=== PATIENT | male | born 1995 | race African-American/Black ===

== ENCOUNTER 2017-12-24 20:56 | Emergency (ER) | payer SELFPAY ==
[~2017-12-24 20:56] MED LIST: Z.0.NO CURRENT MEDS
[2017-12-24 20:58] VITALS: BP 127/76; PULSE 76; RESP 16; TEMP 99; O2SAT 100
[2017-12-24] MEDS ORDERED: POLY10O EACH EYE (21:07)
--- NOTE | 2017-12-24 21:07 | PD ---
HPI Chief Complaint: Eye Problems/Injury Time Seen by Provider: 21:02 Travel History International Travel<30 days: No Contact w/Intl Traveler<30days: No Traveled to known affect area: No History of Present Illness HPI 22-year-old male with no significant medical history presents emergency department for evaluation of bilateral eye your dictation. Patient states 4 days ago the left I became reddened and irritated. It developed drainage. It then spread to his right eye. Now both eyes are red irritated and mildly swollen. They both have a drainage. His eyes are crusted shut in the morning. Denies any trauma. Denies any foreign body sensation. Denies any visual disturbances. No significant photophobia. No headache. No other symptoms to report. PFSH Past Medical History Medical History: Denies Significant Hx Autoimmune Disease: No Blood Disorders: No Anxiety: No Depression: No Cardiovascular Problems: No Diminished Hearing: No Gastrointestinal Disorders: No Genitourinary: No Musculoskeletal: No Neurologic: No Psychiatric: No Respiratory: No Immunizations Current: Yes Sickle Cell Disease: No Past Surgical History Other Surgery: No Social History Alcohol Use: No Tobacco Use: No Substance Use: No Allergies-Medications (Allergen,Severity, Reaction): Coded Allergies: No Known Allergies (Verified , 09/01/11) Reported Meds & Prescriptions Reported Meds & Active Scripts Active Polytrim Opth Drops (Polymyxin/Trimethoprim Sulfate) 10,000-0.1 Unit/Ml-% Soln 1 Drop EACH EYE Q6HR 10 Days Reported No Current Meds (Miscellaneous Medication) Misc Review of Systems Except as stated in HPI: all other systems reviewed are Neg Physical Exam Narrative GENERAL: Well-nourished, well-developed male patient ambulatory and in no acute distress. SKIN: Focused skin assessment warm/dry. HEAD: Normocephalic. EYES: No scleral icterus. Bilateral scleral injection with purulent drainage. Patient is able to open eyes. EOMI. Per old. NECK: Supple, trachea midline. CARDIOVASCULAR: Regular rate RESPIRATORY: No accessory muscle use. GASTROINTESTINAL: Abdomen nondistended MUSCULOSKELETAL: No cyanosis, or edema. Data Data Last Documented VS Vital Signs Date Time Temp Pulse Resp B/P (MAP) Pulse Ox O2 Delivery O2 Flow Rate FiO2 12/24/17 21:16 12/24/17 20:58 99.0 76 16 100 Orders Orders Ed Discharge Order (12/24/17 21:12) [facility] Medical Decision Making Medical Screen Exam Complete: Yes Emergency Medical Condition: Yes Medical Record Reviewed: Yes Differential Diagnosis Conjunctivitis versus keratitis versus iritis versus foreign body Narrative Course 22-year-old male presents to emergency department for evaluation of bilateral eye irritation. Physical exam and history are consistent with conjunctivitis. Patient be started on Polytrim ophthalmic drops. He is counseled on care. He agrees to return immediately with any acute worsening symptoms. Diagnosis Primary Impression: Conjunctivitis Qualified Codes: H10.33 - Unspecified acute conjunctivitis, bilateral Referrals: Primary Care Physician Patient Instructions: Conjunctivitis (DC), General Instructions Additional Instructions: Do not rub your eyes Frequent hand washing to reduce risk of spreading it Cool compresses to reduce irritation Warm compresses to remove crusts Follow up with primary care provider Return to ED with acute worsening of symptoms Med/Other Pt SpecificInfo: Prescription(s) given Scripts Polymyxin B-Trimethoprim Opth Drops (Polytrim Opth Drops) 10,000-0.1 Unit/Ml-% Soln 1 DROP EACH EYE Q6HR for Mgmt Bacterial Infection for 10 Days, #1 BOTTLE 0 Refills Prov: Shruthi Lizarraga 12/24/17 Disposition: 01 DISCHARGE HOME Condition: Stable Shruthi Lizarraga Dec 24, 2017 21:07
== END 2017-12-24 21:17 | disposition home or self-care (01) ==
LOC: NED 20:56
DX: H10.33 Unspecified acute conjunctivitis, bilateral (principal)
CPT/HCPCS: 99283

== ENCOUNTER 2018-01-20 22:54 | Emergency (ER) | payer SELFPAY ==
[~2018-01-20] VITALS: Ht 170.2 cm; Wt 75.0 kg
[~2018-01-20 22:54] MED LIST changes: +POLY10O EACH EYE
[2018-01-20 23:08] VITALS: BP 105/58; PULSE 84; RESP 18; TEMP 98.4; O2SAT 98
[2018-01-20] MEDS ORDERED: TOBR.3%O EACH EYE (23:37)
--- NOTE | 2018-01-20 23:41 | PD ---
HPI Chief Complaint: Eye Problems/Injury Time Seen by Provider: 23:32 Travel History International Travel<30 days: No Contact w/Intl Traveler<30days: No Traveled to known affect area: No History of Present Illness HPI 23-year-old male presents for evaluation of bilateral eye matting, irritation, drainage. Initially symptoms started 1 month ago. he was prescribed Polytrim ophthalmic solution with some improvement of his symptoms but his symptoms never resolved and now worsened over the past few days and this is what prompted evaluation. He does not wear contacts or glasses. He denies any ocular pain or periorbital swelling. He reports that the drainage is yellow in color. He has no other complaints at this time. PFSH Past Medical History Medical History: Denies Significant Hx Autoimmune Disease: No Blood Disorders: No Anxiety: No Depression: No Cardiovascular Problems: No Diminished Hearing: No Gastrointestinal Disorders: No Genitourinary: No Musculoskeletal: No Neurologic: No Psychiatric: No Respiratory: No Immunizations Current: Yes Sickle Cell Disease: No Past Surgical History Surgical History: No Previous Surgery Other Surgery: No Social History Alcohol Use: No Tobacco Use: No Substance Use: Yes (CANNABIS ) Allergies-Medications (Allergen,Severity, Reaction): Coded Allergies: No Known Allergies (Verified , 09/01/11) Reported Meds & Prescriptions Reported Meds & Active Scripts Active Tobrex Opth Oint (Tobramycin Sulfate) 0.3 % Oint 1 Applic EACH EYE QID 10 Days Polytrim Opth Drops (Polymyxin/Trimethoprim Sulfate) 10,000-0.1 Unit/Ml-% Soln 1 Drop EACH EYE Q6HR 10 Days Review of Systems Except as stated in HPI: all other systems reviewed are Neg Physical Exam Narrative GENERAL: Well-nourished male in no acute distress SKIN: Warm and dry. HEAD: Atraumatic. Normocephalic. EYES: Pupils equal and round reactive to light extraocular muscles are intact. There is mild conjunctival injection bilaterally. There is no proptosis, no pain with extraocular range of motion, there is no periorbital edema or erythema. There is no mucopurulent drainage at this time. ENT: No nasal bleeding or discharge. Mucous membranes pink and moist. NECK: Trachea midline. No JVD. Data Data Last Documented VS Vital Signs Date Time Temp Pulse Resp B/P (MAP) Pulse Ox O2 Delivery O2 Flow Rate FiO2 01/20/18 23:08 98.4 84 18 105/58 (74) 98 Orders Orders Ed Discharge Order (01/20/18 23:38) MDM Medical Decision Making Medical Screen Exam Complete: Yes Emergency Medical Condition: Yes Medical Record Reviewed: Yes Differential Diagnosis Bacterial conjunctivitis, viral conjunctivitis, gonococcal conjunctivitis, allergic conjunctivitis Narrative Course The patient appears to have mild bilateral conjunctivitis which is likely bacterial. I do not suspect gonococcal conjunctivitis based on the examination. The plan is to discharge him with Tobrex ophthalmic solution and, given his recurrence, recommend follow-up with an warehouse clerk. He is stable for discharge. Diagnosis Primary Impression: Conjunctivitis Referrals: Stacey Lorenzo MD Additional Instructions: Medication as prescribed. Wash hands frequently. Wash pillow and pillowcase. Follow-up with an warehouse clerk such as Dr. Lorenzo if symptoms do not improve. Return for any new or worsening symptoms. Med/Other Pt SpecificInfo: Prescription(s) given Scripts Tobramycin Opth Oint (Tobrex Opth Oint) 0.3 % Oint 1 APPLIC EACH EYE QID for Infection for 10 Days, #1 TUBE 0 Refills Prov: Chace Richardson MD 01/20/18 Disposition: 01 DISCHARGE HOME Condition: Stable Anuj Newman Jan 20, 2018 23:41
== END 2018-01-20 23:55 | disposition home or self-care (01) ==
LOC: NEPD 22:54
DX: H10.9 Unspecified conjunctivitis (principal)
CPT/HCPCS: 99283